=== PATIENT | female | born 1950 | race Two or more races ===

== ENCOUNTER → 2019-01-30 | Outpatient (CLI) | payer OTHER | END | disposition home or self-care (01) | LOC: MAMO-SONO 09:15 → SONOGRAMA 09:30 | DX: R10.84 Generalized abdominal pain (principal) ==

== ENCOUNTER 2019-06-15 12:59 | Outpatient (CLI) | payer OTHER | END 2019-06-15 13:02 | disposition home or self-care (01) | LOC: NUCLEAR 12:59 | DX: M81.0 Age-related osteoporosis without current pathological fracture (principal); E03.8 Other specified hypothyroidism ==